=== PATIENT | male | born 1935 | race Caucasian/White ===

== ENCOUNTER 2016-08-06 18:52 | Emergency (ER) | payer MEDICARE, BC ==
[2016-08-06 19:27] VITALS: BP 145/74
--- NOTE | 2016-08-06 19:41 | UC ---
Skin Complaint HPI - HPI Summary HPI Summary: 81 y/o male with PMHX of HTN presents to the urgent care c/o of a rash on his left forearm for the past week. Patient reports it started red in color and now is bluish discoloration and is getting bigger. He just return from [place] this morning and is concern since he never had something like that before. Patient denies pain, fever, SOB, chest pain, N/V/D. He doesn't recall injure himself in that area. - History of Current Complaint Chief Complaint: UCSkin Time Seen by Provider: 08/06/16 19:06 Stated Complaint: SKIN ISSUE Hx Obtained From: Patient Onset/Duration: Sudden Onset, Gradual Onset, Lasting Days, Still Present Skin Exposure Onset/Duration: Days Ago Timing: Constant Onset Severity: Moderate Current Severity: Moderate Pain Intensity: 0 Location: Discrete - bluish and red rash Aggravating: Nothing Alleviating: Nothing Associated Signs & Symptoms: Positive: Negative, Bruising. Negative: Vomiting, Difficulty Breathing, Fever, Chills, Cough, Wheezing, Tenderness, Red Streaks - Allergy/Home Medications Allergies/Adverse Reactions: Allergies Allergy/AdvReac Type Severity Reaction Status Date / Time No Known Allergies Allergy Verified 08/06/16 19:03 Review of Systems Constitutional: Negative Skin: Bruising - in left forarm Eyes: Negative ENT: Negative Respiratory: Negative Cardiovascular: Negative Gastrointestinal: Negative Genitourinary: Negative Motor: Negative Neurovascular: Negative Musculoskeletal: Negative Neurological: Negative Psychological: Negative All Other Systems Reviewed And Are Negative: Yes PMH/Surg Hx/FS Hx/Imm Hx Previously Healthy: Yes Cardiovascular History: Hypertension GI/ History: Other - BPH Other GI/ History: BPH - Surgical History Surgical History: Yes Surgery Procedure, Year, and Place: 1970 - Family History Known Family History: Positive: Cardiac Disease, Hypertension, Diabetes, Other - rheumatic fever - Social History Occupation: Retired Lives: With Family Alcohol Use: None Substance Use Type: None Smoking Status (MU): Never Smoked Tobacco Physical Exam Triage Information Reviewed: Yes Appearance: Well-Appearing, No Pain Distress, Well-Nourished, Thin Vital Signs: Initial Vital Signs Temp 98.0 F 08/06/16 18:59 Pulse 65 08/06/16 18:59 Resp 18 08/06/16 18:59 BP 145/74 08/06/16 18:59 Pulse Ox 100 08/06/16 18:59 Vital Signs Reviewed: Yes Eye Exam: Normal Eyes: Positive: Conjunctiva Clear ENT Exam: Normal ENT: Positive: Normal ENT inspection, Hearing grossly normal, Pharynx normal, TMs normal Neck exam: Normal Neck: Positive: Supple, Nontender, No Lymphadenopathy Respiratory Exam: Normal Respiratory: Positive: Chest non-tender, Lungs clear, Normal breath sounds Cardiovascular Exam: Normal Cardiovascular: Positive: RRR, No Murmur, Pulses Normal Abdominal Exam: Normal Abdomen Description: Positive: Nontender, No Organomegaly, Soft. Negative: CVA Tenderness (R), CVA Tenderness (L) Bowel Sounds: Positive: Present Musculoskeletal Exam: Normal Neurological Exam: Normal Psychological Exam: Normal Skin: Positive: rashes - LF dorsal forearm with purplish macule in different stages of discoloration mild echymosis, no tenderness on palpation, no erythema , no swelling. size: 8cm x5cm. Full ROM of arm, good capillary refill and positive sensation. Course/Dx - Course Course Of Treatment: Rash:LF dorsal forearm with purplish macule in different stages of discoloration mild echymosis, no tenderness on palpation, no erythema , no swelling. size: 8cm x5cm. Full ROM of arm, good capillary refill and positive sensation. Pt with PMH of HTN taking baby aspirin qd. Most likely bluish rash due to intake of blood thinners. Patient educated on his rash and advised if rash doesn't resolve in 2 weeks to f/u with his PCP for adjustment on ASA. Pt understood and agreed - Diagnoses Provider Diagnoses: unspecied rash due to blood thinners intake Discharge - Discharge Plan Condition: Stable Disposition: HOME Patient Education Materials: Blood Thinners (ED) Referrals: Ricky Peterson MD [Primary Care Provider] - Additional Instructions: Patient educated that rash is probably due to intake of baby aspirin and it will resolve. Please apply warm compresses over affected area. Please follow up with your PCP if rash doesn't resolve or if pain or fever develops
== END 2016-08-06 19:35 | disposition home or self-care (01) ==
LOC: UCEAST 18:52
DX: L27.0 Generalized skin eruption due to drugs and medicaments taken internally (principal); T50.995A Adverse effect of other drugs, medicaments and biological substances, initial encounter; N40.0 Benign prostatic hyperplasia without lower urinary tract symptoms; I10 Essential (primary) hypertension
CPT/HCPCS: 99211; G0463

== ENCOUNTER 2017-09-05 09:16 | Emergency (ER) | payer MEDICARE, BC ==
[2017-09-05 09:26] VITALS: BP 141/83
--- NOTE | 2017-09-05 10:03 | UC ---
Complaint Male HPI - HPI Summary HPI Summary: 82 y/o male presents to the urgent care c/o burning and frequency on urination since yesterday at 1200N. Pt reports he has a burning sensation in the tip of his penis when he urinated. Pain is 9/10. He denies Hx of UTI or STD's or prostatitis. Pt thinks he has a UTI. Pt has been drinking fluid, but has not taking anything to alleviate symptoms. Pt denies fever. lower back pain, flank pain, SOB, chest pain, dizziness, abdominal pain, N/v/D. - History of Current Complaint Chief Complaint: UCGU Stated Complaint: POSS UTI Time Seen by Provider: 09/05/17 09:59 Hx Obtained From: Patient Onset/Duration: Gradual Onset, Lasting Days - 1 day, Still Present, Worse Since - today Timing: Intermittent Severity Initially: Mild Severity Currently: Moderate Pain Intensity: 9 Pain Scale Used: 0-10 Numeric Location: Other - tip of penis burning when urinating Character: Burning Alleviating Factor(s): Nothing Associated Signs And Symptoms: Positive: Dysuria. Negative: Fever, Hematuria, Blood in Stool, Rectal Pain, Appetite, Nausea, Penile Swelling, Penile Discharge - Risk Factors Testicular Torsion: Negative - Allergies/Home Medications Allergies/Adverse Reactions: Allergies Allergy/AdvReac Type Severity Reaction Status Date / Time No Known Allergies Allergy Verified 09/05/17 09:26 PMH/Surg Hx/FS Hx/Imm Hx Previously Healthy: Yes Cardiovascular History: Hypertension - Surgical History Surgical History: Yes Surgery Procedure, Year, and Place: 1970 - Family History Known Family History: Positive: Cardiac Disease, Hypertension, Diabetes, Other - rheumatic fever - Social History Alcohol Use: None Substance Use Type: None Smoking Status (MU): Never Smoked Tobacco Review of Systems Constitutional: Negative Skin: Negative Eyes: Negative ENT: Negative Respiratory: Negative Cardiovascular: Negative Gastrointestinal: Negative Genitourinary: Dysuria, Frequency, Urgency Motor: Negative Neurovascular: Negative Musculoskeletal: Negative Neurological: Negative Psychological: Negative Is Patient Immunocompromised?: No All Other Systems Reviewed And Are Negative: Yes Physical Exam - Summary Physical Exam Summary: VITAL SIGNS: Reviewed. GENERAL: Patient is a well developed and nourished old male who is sitting comfortable in the examining table. Patient is not in any acute respiratory distress. HEAD AND FACE: No signs of trauma. No ecchymosis, hematomas or skull depressions. No sinus tenderness. EYES: PERRLA, EOMI x 2, No injected conjunctiva, clear watery eyes, no nystagmus. No photophobia. EARS: Hearing grossly intact. Ear canals and tympanic membranes are within normal limits. MOUTH: pharynx with no erythema, no exudates,no palatal petechiae. no B/L tonsillar enlargement Uvula in midline. NECK: Supple, trachea is midline, no lymphadenopathy, no JVD, no carotid bruit, no c-spine tenderness, neck with full ROM. CHEST: Symmetric, no tenderness at palpation LUNGS: Clear to auscultation bilaterally. No wheezing or crackles. CVS: Regular rate and rhythm, S1 and S2 present, no murmurs or gallops appreciated. ABDOMEN: Soft, non-tender. No signs of distention. No rebound no guarding, and no masses palpated. Bowel sounds are normal. BACK:no scoliosis or lesions, non tender to palpation, No B/L CVA tenderness EXTREMITIES: FROM in all major joints, no edema, no cyanosis or clubbing. NEURO: Alert and oriented x 3. No acute neurological deficits. Speech is normal and follows commands. SKIN: Dry and warm Triage Information Reviewed: Yes Vital Signs: Initial Vital Signs Temp 98.2 F 09/05/17 09:22 Pulse 68 09/05/17 09:22 Resp 18 09/05/17 09:22 BP 141/83 09/05/17 09:22 Pulse Ox 100 09/05/17 09:22 Complaint Male Course/Dx - Course Course Of Treatment: 82 y/o male presents to the urgent care c/o burning and frequency on urination since yesterday at 1200N. Pt reports he has a burning sensation in the tip of his penis when he urinated. Pain is 9/10. He denies Hx of UTI or STD's or prostatitis. Pt thinks he has a UTI. Pt has been drinking fluid, but has not taking anything to alleviate symptoms. Pt denies fever. lower back pain, flank pain, SOB, chest pain, dizziness, abdominal pain, N/v/ D.Hx obtained. PE: WNL. UA ordered,results: trace, Leukoesterase trace, Nitrates positive. Pt Rx Ciprofloxacin PO x 3 days. Pyridium 100mg PO TID x 2 days. Advised to increase fluid intake. Urine sent for culture if any abnormality Pt will be notified for further treatment. Pt advised If symptoms do not improve to return to the urgent care or f/u with PCP. Pt's BP is elevated today advised to decrease salt in diet, monitor BP and f/u with PCP for further management. Pt understood and agreed. Left the clinic ambulating. - Differential Dx/Diagnosis Differential Diagnosis/HQI/PQRI: Epididymitis, Prostatitis, Ureteral Calculi, Urinary Tract Infection Provider Diagnoses: 1- Urinary tract infection. 2-dysuria. 3- Uncontrolled HTN Discharge - Sign-Out/Discharge Documenting (check all that apply): Discharge/Admit/Transfer - D/c home - Discharge Plan Condition: Stable Disposition: HOME Prescriptions: Ciprofloxacin TAB* [Cipro 500 MG TAB*] 500 mg PO BID #6 tab Phenazopyridine TAB* [Pyridium 100 mg TAB*] 100 mg PO TID #6 tab Patient Education Materials: Urinary Tract Infection in Men (ED), Low-Sodium Diet (ED) Referrals: Ricky Peterson MD [Primary Care Provider] - 3 Days Additional Instructions: 1- Please take ciprofloxacin PO x3 days. Pyridium 100 mg PO TID x 2 days to alleviate urinary symptoms. Increase increase fluid intake. drink cranberry juice. 2-Urine sent for culture if any abnormality, you will be notified for further treatment. 3-If symptoms do not improve please return to the urgent care or f/u with her PCP. 4-Your BP is elevated today. please decrease salt in your diet, monitor BP and if it continues to be elevated please f/u with your PCP for further management - Billing Disposition and Condition Condition: STABLE Disposition: Home
--- NOTE | 2017-09-06 19:26 | UC ---
- Progress Note Progress Note: 09/06/2017 Urine culture positive for Proteus Mirabilis. Pt Rx ciprofloxacin which cover for it. No change. Await for sensitivity results. Elizabeth Canales PA-C Discharge - Sign-Out/Discharge Documenting (check all that apply): Discharge/Admit/Transfer - D/c home - Discharge Plan Condition: Stable Disposition: HOME Prescriptions: Ciprofloxacin TAB* [Cipro 500 MG TAB*] 500 mg PO BID #6 tab Phenazopyridine TAB* [Pyridium 100 mg TAB*] 100 mg PO TID #6 tab Patient Education Materials: Urinary Tract Infection in Men (ED), Low-Sodium Diet (ED) Referrals: Ricky Peterson MD [Primary Care Provider] - 3 Days Additional Instructions: 1- Please take ciprofloxacin PO x3 days. Pyridium 100 mg PO TID x 2 days to alleviate urinary symptoms. Increase increase fluid intake. drink cranberry juice. 2-Urine sent for culture if any abnormality, you will be notified for further treatment. 3-If symptoms do not improve please return to the urgent care or f/u with her PCP. 4-Your BP is elevated today. please decrease salt in your diet, monitor BP and if it continues to be elevated please f/u with your PCP for further management - Billing Disposition and Condition Condition: STABLE Disposition: Home
--- NOTE | 2017-09-07 17:52 | UC ---
- Progress Note Progress Note: Pt + proteus mirabilis on cipro + sensitive no change mis 09/07/2017 Discharge - Sign-Out/Discharge Documenting (check all that apply): Discharge/Admit/Transfer - Discharge Plan Condition: Stable Disposition: HOME Prescriptions: Ciprofloxacin TAB* [Cipro 500 MG TAB*] 500 mg PO BID #6 tab Phenazopyridine TAB* [Pyridium 100 mg TAB*] 100 mg PO TID #6 tab Patient Education Materials: Urinary Tract Infection in Men (ED), Low-Sodium Diet (ED) Referrals: Ricky Peterson MD [Primary Care Provider] - 3 Days Additional Instructions: 1- Please take ciprofloxacin PO x3 days. Pyridium 100 mg PO TID x 2 days to alleviate urinary symptoms. Increase increase fluid intake. drink cranberry juice. 2-Urine sent for culture if any abnormality, you will be notified for further treatment. 3-If symptoms do not improve please return to the urgent care or f/u with her PCP. 4-Your BP is elevated today. please decrease salt in your diet, monitor BP and if it continues to be elevated please f/u with your PCP for further management - Billing Disposition and Condition Condition: STABLE Disposition: Home
== END 2017-09-05 10:26 | disposition home or self-care (01) ==
LOC: UCEAST 09:16
DX: N39.0 Urinary tract infection, site not specified (principal); I10 Essential (primary) hypertension
CPT/HCPCS: 81003; 87077; 87086; 87184; 87186; 99212; G0463

== ENCOUNTER 2020-10-23 11:33 | Observation (INO) ==
[2020-10-23] MEDS ORDERED: NS 0.9% 1000 ml BAG 1,000 ML IV ONE (12:03)
[2020-10-23 12:56] LABS: ABS Eosinophils 0.1 10^3/ul (0-0.6); ABS Lymphocytes 1.2 10^3/ul (1.0-4.8); ABS Monocytes 0.5 10^3/ul (0-0.8); ABS Neutrophils 5.3 10^3/ul (1.5-7.7); Eosinophil % 0.7 %; Hematocrit 42 % (42-52); Hemoglobin 14.2 g/dL (14.0-18.0); Lymphocyte % 17.3 %; Mean Corpuscular HGB Conc 34 g/dL (31-36); Mean Corpuscular Hemoglobin 30 pg (27-31); Mean Corpuscular Volume 89 fL (80-94); Mean Platelet Volume 7.5 fL (7.4-10.4); Platelet Count 225 10^3/uL (150-450); Red Blood Count 4.67 10^6 /uL (4.18-5.48); Red Cell Distribution Width 14 % (10-15); White Blood Count 7.2 10^3/uL (3.5-10.8)
[2020-10-23 13:16] LABS: ALT 15 U/L (7-52); AST 18 U/L (13-39); Albumin 3.3 g/dL (3.2-5.2); Albumin/Globulin Ratio 0.9 (1-3); Alkaline Phosphatase 80 U/L (35-149); Anion Gap 6 mmol/L (2-11); Blood Urea Nitrogen 13 mg/dL (6-24); C Reactive Protein 3.55 mg/L (<8.01); CO2 Carbon Dioxide 25 mmol/L (22-32); Calcium 8.9 mg/dL (8.6-10.3); Chloride 108 mmol/L (101-111); EGFR Non-African American 59.5 (>60); Globulin 3.8 g/dL (2-4); Glucose 105 mg/dL (70-100); Potassium 4.1 mmol/L (3.5-5.0); Sodium 139 mmol/L (135-145); Total Protein 7.1 g/dL (6.4-8.9)
[2020-10-23 13:22] LABS: Troponin I 0.04 ng/mL (<0.03)
[2020-10-23 13:26] LABS: Urine Appearance Clear; Urine Bilirubin Negative (Negative); Urine Blood Negative (Negative); Urine Color Yellow; Urine Glucose Negative (Negative); Urine Ketones Negative (Negative); Urine Nitrite Negative (Negative); Urine Protein Negative (Negative); Urine Specific Gravity 1.008 (1.002-1.030); Urine Urobilinogen Negative (Negative)
[2020-10-23] MEDS ORDERED: Iodixanol (CONTRAST) 320 MG/ML 100 ML SDV IV ONE (17:16)
[2020-10-23 17:30] LABS: Troponin I 0.03 ng/mL (<0.03)
[2020-10-23 20:50] LABS: TSH Ultra Thyroid Stim Horm 2.23 mcIU/mL (0.34-5.60)
[2020-10-23 21:01] LABS: Folate 13.86 ng/mL (5.90-24.80)
[2020-10-23 21:02] LABS: Vitamin B12 234 pg/mL (180-914)
[2020-10-23 21:13] LABS: Troponin I 0.04 ng/mL (<0.03)
[2020-10-23 23:23] LABS: Troponin I 0.03 ng/mL (<0.03)
[2020-10-24 05:19] LABS: ABS Eosinophils 0.1 10^3/ul (0-0.6); ABS Lymphocytes 1.3 10^3/ul (1.0-4.8); ABS Monocytes 0.6 10^3/ul (0-0.8); ABS Neutrophils 5.6 10^3/ul (1.5-7.7); Eosinophil % 1.9 %; Hematocrit 38 % (42-52); Hemoglobin 13.1 g/dL (14.0-18.0); Lymphocyte % 17.2 %; Mean Corpuscular HGB Conc 34 g/dL (31-36); Mean Corpuscular Hemoglobin 30 pg (27-31); Mean Corpuscular Volume 89 fL (80-94); Mean Platelet Volume 7.5 fL (7.4-10.4); Platelet Count 216 10^3/uL (150-450); Red Blood Count 4.32 10^6 /uL (4.18-5.48); Red Cell Distribution Width 14 % (10-15); White Blood Count 7.8 10^3/uL (3.5-10.8)
[2020-10-24 05:45] LABS: Calcium 8.5 mg/dL (8.6-10.3); EGFR African American 80.7 (>60); EGFR Non-African American 66.7 (>60); HDL Cholesterol 30.5 mg/dL; Potassium 3.7 mmol/L (3.5-5.0)
[2020-10-24 11:14] VITALS: BP 110/62
== END 2020-10-24 15:45 | disposition home or self-care (01) ==
LOC: ED 11:33 → MEDTELE 11:33 → SUATTDRO 17:09
PROVIDERS: ADMIT Nurse Practitioner; ATTEND Internal Medicine

== ENCOUNTER 2021-08-03 10:39 | Observation (INO) ==
[2021-08-03] MEDS ORDERED: Lactated Ringers 1000 ml BAG 1,000 ML IV ONE (10:46)
[2021-08-03 11:09] LABS: ABS Eosinophils 0.1 10^3/ul (0-0.6); ABS Lymphocytes 2.1 10^3/ul (1.0-4.8); ABS Monocytes 0.5 10^3/ul (0-0.8); ABS Neutrophils 4.2 10^3/ul (1.5-7.7); Eosinophil % 1.3 %; Hematocrit 44 % (42-52); Hemoglobin 14.8 g/dL (14.0-18.0); Lymphocyte % 30.8 %; Mean Corpuscular HGB Conc 34 g/dL (31-36); Mean Corpuscular Hemoglobin 30 pg (27-31); Mean Corpuscular Volume 87 fL (80-94); Mean Platelet Volume 8.1 fL (7.4-10.4); Platelet Count 189 10^3/uL (150-450); Red Blood Count 5.01 10^6 /uL (4.18-5.48); Red Cell Distribution Width 14 % (10-15); White Blood Count 6.9 10^3/uL (3.5-10.8)
[2021-08-03 11:21] LABS: INR 1.1 (0.86-1.15)
[2021-08-03 11:49] LABS: Albumin 3.7 g/dL (3.2-5.2); Albumin/Globulin Ratio 1.3 (1-3); Globulin 2.8 g/dL (2-4); Magnesium 2.2 mg/dL (1.9-2.7); Potassium 4.8 mmol/L (3.5-5.0); Total Protein 6.5 g/dL (6.4-8.9); eGFR CKD-EPI 45.3 (>60)
[2021-08-03 12:18] LABS: High Sensitivity Troponin 1 Hr 4 pg/mL (<20)
[2021-08-03] MEDS ORDERED: hydrALAZINE 20 mg/ml 1 ML Vial IV IV SLOW PU ONE (14:48)
[2021-08-03] MEDS: VITAMIN E PO SCH (22:23)
[2021-08-03] MEDS: ASCORBIC ACID PO SCH (22:23)
[2021-08-03] MEDS: LUTEIN PO SCH (22:23)
[2021-08-03] MEDS: ZINC PO SCH (22:23)
[2021-08-03] MEDS: [UNRECOGNIZED DRUG - OTHER] PO SCH (22:23)
[2021-08-04 06:15] LABS: ABS Eosinophils 0.1 10^3/ul (0-0.6); ABS Lymphocytes 2.1 10^3/ul (1.0-4.8); ABS Monocytes 0.6 10^3/ul (0-0.8); ABS Neutrophils 4.4 10^3/ul (1.5-7.7); Eosinophil % 1.8 %; Hematocrit 41 % (42-52); Hemoglobin 13.9 g/dL (14.0-18.0); Lymphocyte % 29.5 %; Mean Corpuscular HGB Conc 34 g/dL (31-36); Mean Corpuscular Hemoglobin 30 pg (27-31); Mean Corpuscular Volume 87 fL (80-94); Mean Platelet Volume 8.4 fL (7.4-10.4); Platelet Count 165 10^3/uL (150-450); Red Blood Count 4.65 10^6 /uL (4.18-5.48); Red Cell Distribution Width 14 % (10-15); White Blood Count 7.2 10^3/uL (3.5-10.8)
[2021-08-04 06:36] LABS: Calcium 8.6 mg/dL (8.6-10.3); Magnesium 2.2 mg/dL (1.9-2.7); Potassium 4.3 mmol/L (3.5-5.0); eGFR CKD-EPI 49.6 (>60)
[2021-08-04] MEDS: ASCORBIC ACID PO SCH (08:32)
[2021-08-04] MEDS: ZINC PO SCH (08:32)
[2021-08-04] MEDS: [UNRECOGNIZED DRUG - OTHER] PO SCH (08:32)
[2021-08-04] MEDS: VITAMIN E PO SCH (08:32)
[2021-08-04] MEDS: LUTEIN PO SCH (08:32)
[2021-08-04] MEDS: CMCS: OMEGA-3 FATTY ACID 1000 mg(NF) PO SCH (08:42)
[2021-08-05] MEDS: ZINC PO SCH ×2 (00:32→07:36)
[2021-08-05] MEDS: [UNRECOGNIZED DRUG - OTHER] PO SCH ×2 (00:32→07:36)
[2021-08-05] MEDS: VITAMIN E PO SCH ×2 (00:32→07:36)
[2021-08-05] MEDS: LUTEIN PO SCH ×2 (00:32→07:36)
[2021-08-05] MEDS: ASCORBIC ACID PO SCH ×2 (00:32→07:36)
[2021-08-05 06:37] LABS: Calcium 8.5 mg/dL (8.6-10.3); eGFR CKD-EPI 51.8 (>60)
[2021-08-05] MEDS: CMCS: OMEGA-3 FATTY ACID 1000 mg(NF) PO SCH (12:10)
[2021-08-05] MEDS ORDERED: Lidocaine 1% w EPI 1:100,000 MDV 20 ML VIAL ONE (13:15)
[2021-08-05 15:13] VITALS: BP 137/55
== END 2021-08-05 15:45 | disposition home or self-care (01) ==
LOC: ED 10:39 → EDHOLD 10:39 → MEDTELE 17:41
PROVIDERS: ADMIT Internal Medicine; ATTEND Internal Medicine

== ENCOUNTER 2023-11-16 17:55 | Inpatient (IN) ==
[2023-11-16 18:40] LABS: ABS Eosinophils 0.1 10^3/uL (0.0-0.5); ABS Lymphocytes 1.3 10^3/uL (1.0-4.8); ABS Neutrophils 9.6 10^3/uL (1.5-7.6); ABS Nucleated RBC 0.01 10^3/ul; Eosinophil % 0.6 %; Hematocrit 47.7 % (38-53); Hemoglobin 15.9 g/dL (13.2-16.3); Lymphocyte % 10.8 %; Mean Corpuscular Hemoglobin 29.6 pg (27-33); Mean Corpuscular Hgb Conc 33.3 g/dL (31-36); Mean Corpuscular Volume 88.9 fL (80-97); Mean Platelet Volume 8.8 fL (7.5-11.2); Platelet Count 197 10^3/uL (150-450); Red Blood Count 5.37 10^6/uL (4.06-5.63); Red Cell Distribution Width 13.6 % (12-17)
[2023-11-16 18:43] LABS: INR 1.06 (0.85-1.14)
[2023-11-16 19:00] LABS: High Sens Troponin Baseline 8 pg/mL (<20)
[2023-11-16 19:20] LABS: ALT 23 U/L (7-52); Albumin/Globulin Ratio 1.3 (1-3); Alkaline Phosphatase 88 U/L (35-149); Anion Gap 8 mmol/L (2-16); Blood Urea Nitrogen 17 mg/dL (6-24); C Reactive Protein 20.57 mg/L (<8.01); CO2 Carbon Dioxide 22 mmol/L (22-32); Calcium 9.3 mg/dL (8.6-10.3); Chloride 111 mmol/L (101-111); Creatinine, Serum 1.36 mg/dL (0.67-1.17); Globulin 3.1 g/dL (2-4); Glucose 99 mg/dL (70-100); Sodium 141 mmol/L (135-145); Total Bilirubin 0.9 mg/dL (0.2-1.0); Total Protein 7.1 g/dL (6.4-8.9); eGFR CKD-EPI 50.7 (>60)
[2023-11-16] MEDS ORDERED: Iodixanol (CONTRAST) 320 MG/ML 100 ML SDV IV ONE (19:36)
[2023-11-16 19:59] LABS: High Sensitivity Troponin 1 Hr 8 pg/mL (<20)
[2023-11-16 20:22] LABS: Albumin 3.8 g/dL (3.2-5.2); Albumin/Globulin Ratio 1.3 (1-3); Creatinine, Serum 1.32 mg/dL (0.67-1.17); Direct Bilirubin 0.1 mg/dL (0.03-0.18); Globulin 2.9 g/dL (2-4); HDL Cholesterol 36.7 mg/dL; Indirect Bilirubin 0.9 mg/dL (0.3-1.0); Potassium 4.3 mmol/L (3.5-5.0); Total Protein 6.7 g/dL (6.4-8.9); eGFR CKD-EPI 52.5 (>60)
[2023-11-16 21:30] LABS: TSH Ultra Thyroid Stim Horm 0.8 mcIU/mL (0.34-5.60)
[2023-11-16 21:32] LABS: Free T4 0.98 ng/dL (0.61-1.12)
[2023-11-16 23:08] LABS: Urine Appearance Clear; Urine Bilirubin Negative (Negative); Urine Blood 2+ (Negative); Urine Color Colorless; Urine Glucose Negative (Negative); Urine Ketones Negative (Negative); Urine Nitrite Negative (Negative); Urine Protein Negative (Negative); Urine Specific Gravity 1.008 (1.002-1.030); Urine Urobilinogen Negative (Negative); Urine pH 6.5 (5.0-8.0)
[2023-11-16 23:13] LABS: Urine Bacteria Absent /HPF (Absent); Urine Red Blood Cell 2+(6-10/hpf) /HPF (0-Trace); Urine White Blood Cell Trace(0-5/hpf) /HPF (0-Trace)
[2023-11-17 00:03] LABS: Vitamin B12 778 pg/mL (180-914)
[2023-11-17] MEDS: Enoxaparin 40 MG/0.4 ML SYR SUBCUT SCH (02:45)
[2023-11-17 12:04] LABS: ABS Eosinophils 0.1 10^3/uL (0.0-0.5); ABS Lymphocytes 1.5 10^3/uL (1.0-4.8); ABS Monocytes 0.9 10^3/uL (0.0-1.1); ABS Neutrophils 4.8 10^3/uL (1.5-7.6); ABS Nucleated RBC 0.01 10^3/ul; Eosinophil % 1.7 %; Hemoglobin 14.9 g/dL (13.2-16.3); Lymphocyte % 20.1 %; Mean Corpuscular Hemoglobin 30.5 pg (27-33); Mean Corpuscular Hgb Conc 34.5 g/dL (31-36); Mean Corpuscular Volume 88.4 fL (80-97); Mean Platelet Volume 8.8 fL (7.5-11.2); Nucleated Red Blood Cells % 0.1 %/100WBC (0.0-0.8); Platelet Count 173 10^3/uL (150-450); Red Blood Count 4.87 10^6/uL (4.06-5.63); Red Cell Distribution Width 13.9 % (12-17); White Blood Count 7.4 10^3/uL (3.6-10.2)
[2023-11-17 12:22] LABS: Albumin 3.5 g/dL (3.2-5.2); Albumin/Globulin Ratio 1.3 (1-3); Calcium 8.9 mg/dL (8.6-10.3); Creatinine, Serum 1.23 mg/dL (0.67-1.17); Globulin 2.8 g/dL (2-4); Magnesium 2.2 mg/dL (1.9-2.7); Potassium 4.1 mmol/L (3.5-5.0); Total Bilirubin 0.9 mg/dL (0.2-1.0); Total Protein 6.3 g/dL (6.4-8.9); eGFR CKD-EPI 57.2 (>60)
[2023-11-17] MEDS: Sulfur Hexaflouride MICROSPHR 25 MG VIAL IV PRN (15:54)
[2023-11-17] MEDS ORDERED: Sulfur Hexaflouride MICROSPHR 25 MG VIAL ONE (16:00)
[2023-11-18 06:39] LABS: ABS Eosinophils 0.2 10^3/uL (0.0-0.5); ABS Lymphocytes 1.7 10^3/uL (1.0-4.8); ABS Monocytes 0.8 10^3/uL (0.0-1.1); ABS Neutrophils 4.4 10^3/uL (1.5-7.6); Eosinophil % 2.5 %; Hemoglobin 14.4 g/dL (13.2-16.3); Lymphocyte % 23.7 %; Mean Corpuscular Hemoglobin 30.4 pg (27-33); Mean Corpuscular Hgb Conc 34.3 g/dL (31-36); Mean Corpuscular Volume 88.7 fL (80-97); Mean Platelet Volume 8.6 fL (7.5-11.2); Platelet Count 171 10^3/uL (150-450); Red Blood Count 4.74 10^6/uL (4.06-5.63); Red Cell Distribution Width 13.7 % (12-17); White Blood Count 7.1 10^3/uL (3.6-10.2)
[2023-11-18 07:05] LABS: Calcium 8.8 mg/dL (8.6-10.3); Creatinine, Serum 1.5 mg/dL (0.67-1.17); Potassium 4.2 mmol/L (3.5-5.0); eGFR CKD-EPI 45.1 (>60)
[2023-11-18] MEDS: NS 0.9% 1000 ml BAG 1,000 ML IV ONE (12:06)
[2023-11-18] MEDS: Lactated Ringers 1000 ml BAG 1,000 ML IV ONE (12:19)
[2023-11-18] MEDS: Ondansetron 4 mg VIAL 2 MG/ML 2 ml VIAL IV PRN (23:37)
[2023-11-19 00:59] LABS: ABS Eosinophils 0.1 10^3/uL (0.0-0.5); ABS Lymphocytes 0.9 10^3/uL (1.0-4.8); ABS Monocytes 0.7 10^3/uL (0.0-1.1); ABS Neutrophils 8.4 10^3/uL (1.5-7.6); Eosinophil % 0.8 %; Hematocrit 43.3 % (38-53); Hemoglobin 14.7 g/dL (13.2-16.3); Lymphocyte % 9.3 %; Mean Corpuscular Hemoglobin 29.7 pg (27-33); Mean Corpuscular Volume 87.4 fL (80-97); Mean Platelet Volume 8.8 fL (7.5-11.2); Platelet Count 184 10^3/uL (150-450); Red Blood Count 4.95 10^6/uL (4.06-5.63); Red Cell Distribution Width 13.7 % (12-17); White Blood Count 10.2 10^3/uL (3.6-10.2)
[2023-11-19 01:20] LABS: Albumin 3.6 g/dL (3.2-5.2); Albumin/Globulin Ratio 1.3 (1-3); C Reactive Protein 19.09 mg/L (<8.01); Calcium 8.7 mg/dL (8.6-10.3); Creatinine, Serum 1.51 mg/dL (0.67-1.17); Globulin 2.8 g/dL (2-4); Potassium 3.9 mmol/L (3.5-5.0); Total Bilirubin 0.7 mg/dL (0.2-1.0); Total Protein 6.4 g/dL (6.4-8.9); eGFR CKD-EPI 44.7 (>60)
[2023-11-19] MEDS ORDERED: Zosyn per Pharmacy NOTE FOLLOW UP SCH (02:00)
[2023-11-19] MEDS: Lactated Ringers 1000 ml BAG 1,000 ML IV ONE (02:08)
[2023-11-19] MEDS: Piperacillin/Tazobac 3.375 BAG 3.375 GM/100 ML BAG IV ONE (02:15)
[2023-11-19] MEDS: Iodixanol (CONTRAST) 320 MG/ML 100 ML SDV IV ONE (03:03)
[2023-11-19] MEDS: ZOSYN 3.375 GM Q8H per EXTENDED INFUSION IV SCH (06:16)
[2023-11-19 07:45] LABS: ABS Lymphocytes 0.8 10^3/uL (1.0-4.8); ABS Monocytes 0.7 10^3/uL (0.0-1.1); ABS Neutrophils 8.8 10^3/uL (1.5-7.6); Eosinophil % 0.1 %; Hematocrit 41.2 % (38-53); Hemoglobin 14.2 g/dL (13.2-16.3); Lymphocyte % 7.5 %; Mean Corpuscular Hemoglobin 30.4 pg (27-33); Mean Corpuscular Hgb Conc 34.4 g/dL (31-36); Mean Corpuscular Volume 88.2 fL (80-97); Mean Platelet Volume 8.6 fL (7.5-11.2); Platelet Count 160 10^3/uL (150-450); Red Blood Count 4.66 10^6/uL (4.06-5.63); Red Cell Distribution Width 13.7 % (12-17); White Blood Count 10.3 10^3/uL (3.6-10.2)
[2023-11-19 08:50] LABS: ALT 35 U/L (7-52); Albumin 3.4 g/dL (3.2-5.2); Albumin/Globulin Ratio 1.2 (1-3); Alkaline Phosphatase 68 U/L (35-149); Anion Gap 9 mmol/L (2-16); Blood Urea Nitrogen 25 mg/dL (6-24); CO2 Carbon Dioxide 25 mmol/L (22-32); Calcium 8.7 mg/dL (8.6-10.3); Chloride 107 mmol/L (101-111); Creatinine, Serum 1.51 mg/dL (0.67-1.17); Globulin 2.8 g/dL (2-4); Glucose 127 mg/dL (70-100); Sodium 141 mmol/L (135-145); Total Bilirubin 0.9 mg/dL (0.2-1.0); Total Protein 6.2 g/dL (6.4-8.9); eGFR CKD-EPI 44.7 (>60)
[2023-11-19] MEDS: Lactated Ringers 1000 ml BAG 1,000 ML IV SCH (10:57)
[2023-11-19 10:59] LABS: Magnesium 1.9 mg/dL (1.9-2.7)
[2023-11-19 11:38] LABS: Rapid COVID-19 Molecular Undetected (Undetected)
[2023-11-19 12:34] LABS: Potassium Redraw 4.1 mmol/L (3.5-5.0)
[2023-11-20 09:26] VITALS: BP 153/73
[2023-11-20] MEDS ORDERED: Senna TAB 8.6 mg TAB PO PRN (10:15)
[2023-11-20] MEDS ORDERED: Polyethylene Glycol 3350 17 GM PACKET PO PRN (10:15)
[2023-11-20] MEDS ORDERED: Magnesium Hydroxide LIQ 30 ML UDC PO PRN (10:15)
[2023-11-20 10:46] LABS: ABS Eosinophils 0.2 10^3/uL (0.0-0.5); ABS Lymphocytes 1.4 10^3/uL (1.0-4.8); ABS Monocytes 0.6 10^3/uL (0.0-1.1); ABS Neutrophils 4.4 10^3/uL (1.5-7.6); Eosinophil % 2.9 %; Hematocrit 39.1 % (38-53); Hemoglobin 13.1 g/dL (13.2-16.3); Lymphocyte % 21.7 %; Mean Corpuscular Hemoglobin 29.5 pg (27-33); Mean Corpuscular Hgb Conc 33.5 g/dL (31-36); Mean Platelet Volume 8.3 fL (7.5-11.2); Platelet Count 152 10^3/uL (150-450); Red Blood Count 4.44 10^6/uL (4.06-5.63); Red Cell Distribution Width 14.1 % (12-17); White Blood Count 6.6 10^3/uL (3.6-10.2)
[2023-11-20 11:20] LABS: Albumin 3.2 g/dL (3.2-5.2); Albumin/Globulin Ratio 1.2 (1-3); C Reactive Protein 44.2 mg/L (<8.01); Calcium 8.3 mg/dL (8.6-10.3); Creatinine, Serum 1.42 mg/dL (0.67-1.17); Globulin 2.6 g/dL (2-4); Magnesium 1.9 mg/dL (1.9-2.7); Total Bilirubin 0.8 mg/dL (0.2-1.0); Total Protein 5.8 g/dL (6.4-8.9); eGFR CKD-EPI 48.1 (>60)
[2023-11-20] MEDS ORDERED: Magnesium Hydroxide LIQ 30 ML UDC PO SCH (21:00)
== END 2023-11-20 12:52 | disposition home or self-care (01) | DRG 948 ==
LOC: EDHOLD 17:55 → ED 17:55 → SUATTDRO 23:10 → MEDTELE 11-17 13:33 → SUATTDRO 11-19 16:04
PROVIDERS: ADMIT Hospitalist; ATTEND Internal Medicine